=== PATIENT | male | born 1990 | race Caucasian/White ===

== ENCOUNTER 2017-01-05 18:15 | Emergency (ER) | payer BC, SELFPAY ==
[~2017-01-05 18:15] MED LIST: Sodium Chloride Irrig Solution 250 ML BOT ONE
[2017-01-05] MEDS ORDERED: Adacel (T-DAP) 0.5 ML VIAL ONE (19:14)
--- NOTE | 2017-01-05 19:27 | RAD ---
RIGHT ELBOW FOUR VIEW 01/05/17 HISTORY: Injury. COMPARISON: None. FINDINGS: No significant joint effusion. No acute fracture or malalignment. IMPRESSION: No acute fracture or malalignment. POS: [facility]
--- NOTE | 2017-01-05 19:32 | RAD ---
RIGHT FOREARM TWO VIEW 01/05/17 HISTORY: Injury. COMPARISON: None. FINDINGS: The radius and ulna appear intact. There is edema and possible dorsal laceration of the proximal for earm. IMPRESSION: No acute fracture. POS: [facility]
== END 2017-01-05 20:40 | disposition home or self-care (01) ==
LOC: MADERS 18:15
DX: S53.401A Unspecified sprain of right elbow, initial encounter (principal); S60.511A Abrasion of right hand, initial encounter; F17.210 Nicotine dependence, cigarettes, uncomplicated; V29.9XXA Motorcycle rider (driver) (passenger) injured in unspecified traffic accident, initial encounter
CPT/HCPCS: 90471; 90715

== ENCOUNTER 2019-12-27 19:38 | Emergency (ER) | payer BC, SELFPAY ==
--- NOTE | 2019-12-27 20:28 | RAD ---
EXAM: 4 views of the left knee HISTORY: Knee pain COMPARISON: None FINDINGS: No knee effusion is seen. There is no evidence of acute fracture or dislocation. No signifi cant degenerative changes are seen. No soft tissue swelling is present. IMPRESSION: No evidence of acute osseous abnormality.
--- NOTE | 2019-12-27 20:31 | RAD ---
EXAM: 2 views of the left hip HISTORY: Left hip pain COMPARISON: None FINDINGS: 2 views of the left hip shows no evidence of acute fracture or dislocation. No degenerative changes are seen. No soft tissue swelling is present. IMPRESSION: No evidence of acute osseous abnormality.
--- NOTE | 2019-12-27 20:38 | RAD ---
EXAM: 3 views of the left hand COMPARISON: None HISTORY: Hand pain after trauma FINDINGS: 3 views of the hand shows no evidence of acute fracture or dislocation. No degenerative marcell nges are seen. No soft tissue swelling is present. IMPRESSION: Unremarkable exam.
[2019-12-27 20:47] LABS: #Basophils 0.2 thou/uL (0.0-0.2); #Eosinphils 0.3 thou/uL (0.0-0.7); #Monocytes 1.3 thou/uL (0.11-0.59); #Neutrophils 12.1 thou/uL (1.40-6.50); %Basophils 1.2 % (0.0-1.0); %Eosinophils 1.4 % (0.0-10.0); %Lymphocytes 22.3 % (21.0-51.0); %Monocytes 7.2 % (0.0-10.0); %Neutrophils 67.9 % (42.0-75.0); Hemoglobin 15.3 g/dL (14.0-18.0); Mean Corpuscular HGB CONC 32.7 g/dL (32.0-36.0); Mean Corpuscular Hemoglobin 28.6 pg (27.0-31.0); Mean Corpuscular Volume 87.5 fL (78.0-98.0); Mean Platelet Volume 7.9 fL (7.4-10.4); Platelet Count 438 thou/uL (130-400); RBC Distribution Width 11.1 % (11.5-14.5); Red Blood Cell (RBC) Count 5.36 mill/uL (4.70-6.10); White Blood Cell (WBC) Count 17.9 thou/uL (4.8-10.8)
[2019-12-27 21:00] LABS: ALT (SGPT) 48 U/L (8-55); AST (SGOT) 21 U/L (5-34); Albumin 4.7 g/dL (3.5-5.0); Alkaline Phosphatase 75 U/L (40-110); Anion Gap 15 mmol/L (10-20); BUN (Urea Nitrogen) 12 mg/dL (8.9-20.6); Bilirubin, Total 0.3 mg/dL (0.2-1.2); Calc. Creatinine Clearance 0 mL/min (70-130); Calcium 10.5 mg/dL (7.8-10.44); Carbon Dioxide 26 mmol/L (22-29); Chloride 105 mmol/L (98-107); Estimated GFR-MDRD 72; Globulin 3.2 g/dL (2.4-3.5); Glucose 81 mg/dL (70-105); Potassium 3.8 mmol/L (3.5-5.1); Protein, Total 7.9 g/dL (6.0-8.3); Sodium 142 mmol/L (136-145)
== END 2019-12-27 21:22 | disposition home or self-care (01) ==
LOC: MADERS 19:38
DX: S01.01XA Laceration without foreign body of scalp, initial encounter (principal); T14.8XXA Other injury of unspecified body region, initial encounter; F17.210 Nicotine dependence, cigarettes, uncomplicated; V89.2XXA Person injured in unspecified motor-vehicle accident, traffic, initial encounter
CPT/HCPCS: 36415; 80053; 85025

== ENCOUNTER 2020-09-22 17:32 | Emergency (ER) | payer SELFPAY ==
[2020-09-22] MEDS ORDERED: Ondansetron PF 4 MG/2 ML Vial ONE (18:07)
[2020-09-22] MEDS ORDERED: Ketorolac Tromethamine 30 MG/ML VIAL ONE (18:07)
[2020-09-22] MEDS ORDERED: Sodium Chloride 0.9% 1,000 ML ONE (18:07)
[2020-09-22 18:36] LABS: ALT (SGPT) 74 U/L (8-55); AST (SGOT) 31 U/L (5-34); Alkaline Phosphatase 72 U/L (40-110); Anion Gap 20 mmol/L (10-20); BUN (Urea Nitrogen) 13 mg/dL (8.9-20.6); Bilirubin, Total 0.5 mg/dL (0.2-1.2); Calc. Creatinine Clearance 0 mL/min (70-130); Calcium 10.1 mg/dL (7.8-10.44); Carbon Dioxide 25 mmol/L (22-29); Chloride 100 mmol/L (98-107); Glucose 113 mg/dL (70-105); Lipase 8 U/L (8-78); Potassium 4.2 mmol/L (3.5-5.1); Sodium 141 mmol/L (136-145)
[2020-09-22 18:40] LABS: Band 6 % (5-11); Hemoglobin 16.2 g/dL (14.0-18.0); Lymphocytes 8 % (21-51); MDiff Complete? YES; Mean Corpuscular HGB CONC 32.5 g/dL (32.0-36.0); Mean Corpuscular Hemoglobin 29.3 pg (27.0-31.0); Mean Platelet Volume 7.8 fL (7.4-10.4); Monocytes 4 % (0-10); Neutrophil 82 % (42-75); Platelet Count 483 thou/uL (130-400); Platelet Morphology Comment Appears Increased; RBC Morphology Normal; Red Blood Cell (RBC) Count 5.53 mill/uL (4.70-6.10); White Blood Cell (WBC) Count 23.1 thou/uL (4.8-10.8)
[2020-09-22 18:59] LABS: Bilirubin Negative (Negative); Blood, Urine Large (Negative); Glucose, Urine (Dipstick) Negative (Negative); Ketone, Urine Negative (Negative); Leukocyte Negative (Negative); Nitrite Negative (Negative); Protein, Urine (Dipstick) 30 mg/dL (Neg-Trace); Urobilinogen 0.2 mg/dL (Less than 2)
[2020-09-22 19:04] LABS: Clarity Hazy (Clear)
[2020-09-22 19:06] LABS: Specific Gravity, Urine 1.026 (1.002-1.036)
[2020-09-22 19:08] LABS: Bacteria/HPF Rare-Few HPF (None Seen); RBC/HPF 21-50 HPF (0-3); Squamous Epithelial 0-3 HPF (0-3); WBC/HPF 0-3 HPF (0-3)
== END 2020-09-22 19:35 | disposition home or self-care (01) ==
LOC: MADERS 17:32
DX: N13.2 Hydronephrosis with renal and ureteral calculous obstruction (principal); F17.210 Nicotine dependence, cigarettes, uncomplicated
CPT/HCPCS: 74176; 80053; 81003; 81015; 83690; 85025; 96374; 96375; J1885; J2405; J7050

== ENCOUNTER 2022-08-10 16:20 | Emergency (ER) | payer OTHER, SELFPAY ==
[2022-08-10] MEDS ORDERED: Ketorolac Tromethamine 60 MG/2 ML VIAL ONE (16:53)
[2022-08-10] MEDS ORDERED: Orphenadrine Citrate 60 MG/2 ML VIAL ONE (16:53)
== END 2022-08-10 17:56 | disposition home or self-care (01) ==
LOC: MADERS 16:20
DX: S42.032A Displaced fracture of lateral end of left clavicle, initial encounter for closed fracture (principal); F17.290 Nicotine dependence, other tobacco product, uncomplicated; V89.2XXA Person injured in unspecified motor-vehicle accident, traffic, initial encounter
CPT/HCPCS: 71045; 96372; J1885; J2360